=== PATIENT | male | born 1965 | race Caucasian/White ===

== ENCOUNTER 2016-10-24 10:17 | Emergency (ER) | payer OTHER ==
[~2016-10-24] VITALS: Ht 180.3 cm; Wt 84.5 kg
[2016-10-24 11:40] VITALS: BP 127/88
== END 2016-10-24 11:40 | disposition home or self-care (01) ==
LOC: ED 10:17
DX: M25.511 Pain in right shoulder (principal); M67.431 Ganglion, right wrist; M25.521 Pain in right elbow
CPT/HCPCS: J1885